=== PATIENT | female | born 1995 | race American Indian/Alaskan Native ===

== ENCOUNTER 2020-03-15 11:43 | Observation (INO) | payer MEDICAID ==
[2020-03-15] MEDS ORDERED: DEXTROSE 50% IN WATER (25GM) 50 ML VIAL IV ONE (11:48)
[2020-03-15] MEDS ORDERED: DEXTROSE 50% IN WATER (25GM) 50 ML SYRINGE IV SCH (12:00)
--- NOTE | 2020-03-15 12:14 | Emergency Department Report ---
ED Altered Mental Status HPI - General Chief Complaint: Hypoglycemia Stated Complaint: DIABETES/AMS PUI?: No Time Seen by Provider: 03/15/20 11:48 Source: EMS Mode of arrival: Ambulatory Limitations: No Limitations - History of Present Illness Initial Comments: Chief complaint: Low blood sugar altered mental status HPI: This is a 24-year-old female with history of i juvenile diabetes mellitus and asthma who presents with decreased responsiveness status. Patient was found in bed by her friend. Patient would not respond. EMS discovered blood glucose level to be 10. EMS was unable to obtain venous access after several attempts. Friend deactivated insulin pump. MD Complaint: altered mental status, decreased responsiveness -: Sudden, This morning Severity: severe Consistency of Symptoms: constant Context: diabetes - Related Data Home Medications Medication Instructions Recorded Confirmed Last Taken Insulin Aspart (Nf) [Novolog 100 1 - 25 unit SQ PRN PRN 03/06/14 03/13/14 03/13/14 UNITS/ML] Insulin NPH, Human [Novolin N] 12 unit SQ DAILY 03/06/14 03/13/14 03/13/14 Previous Rx's Medication Instructions Recorded Last Taken Type SILVER sulfADIAZINE 400 GRAM 50 gm TP BID #1 jar 03/13/14 Unknown Rx [Thermazene 400 Gram] oxyCODONE /ACETAMINOPHEN [Percocet 1 - 2 tab PO Q4H PRN #30 tablet 03/13/14 Unknown Rx 5/325 mg] Allergies Allergy/AdvReac Type Severity Reaction Status Date / Time shellfish derived Allergy Itching Verified 03/06/14 10:50 ED Review of Systems ROS: Stated complaint: DIABETES/AMS Other details as noted in HPI Comment: Unobtainable due to pts medical conditions (Limited due to altered mental status) ED Past Medical Hx - Past Medical History Previous Medical History?: Yes Hx Hypertension: No Hx Congestive Heart Failure: No Hx Diabetes: Yes (since 2003) Hx Deep Vein Thrombosis: No Hx Renal Disease: No Hx Sickle Cell Disease: No Hx Seizures: Yes (secondary to hypoglycemia x 2, last in 2010. No meds.) Hx Asthma: Yes (Childhood, no meds) Hx COPD: No Hx HIV: No - Social History Smoking Status: Never Smoker - Medications Home Medications: Home Medications Medication Instructions Recorded Confirmed Last Taken Type Insulin Aspart (Nf) [Novolog 100 1 - 25 unit SQ PRN PRN 03/06/14 03/13/14 03/13/14 History UNITS/ML] Insulin NPH, Human [Novolin N] 12 unit SQ DAILY 03/06/14 03/13/14 03/13/14 History SILVER sulfADIAZINE 400 GRAM 50 gm TP BID #1 jar 03/13/14 Unknown Rx [Thermazene 400 Gram] oxyCODONE /ACETAMINOPHEN [Percocet 1 - 2 tab PO Q4H PRN #30 tablet 03/13/14 Unknown Rx 5/325 mg] ED Physical Exam - General Limitations: No Limitations General appearance: lethargic, other (Patient staring off, not talking, will withdraw from pain) - Head Head exam: Present: atraumatic, normocephalic - Eye Eye exam: Present: normal appearance - ENT ENT exam: Present: mucous membranes moist - Neck Neck exam: Present: normal inspection, full ROM - Respiratory Respiratory exam: Present: normal lung sounds bilaterally. Absent: respiratory distress, wheezes, rales, rhonchi - Cardiovascular Cardiovascular Exam: Present: normal rhythm, tachycardia, normal heart sounds. Absent: systolic murmur, diastolic murmur, rubs, gallop - GI/Abdominal GI/Abdominal exam: Present: soft, normal bowel sounds. Absent: distended, tenderness, guarding - Extremities Exam Extremities exam: Present: normal inspection - Neurological Exam Neurological exam: Present: altered, oriented X3 - Psychiatric Psychiatric exam: Present: flat affect - Skin Skin exam: Present: warm, dry, intact, normal color. Absent: rash ED Course Vital Signs 03/15/20 03/15/20 11:50 11:54 Temperature 98.4 F Pulse Rate 125 H Respiratory 12 18 Rate Blood Pressure 120/71 Blood Pressure 120/71 [Right] O2 Sat by Pulse 100 100 Oximetry - IO Right Tibia Consent Obtained: emergent situation Time Out Performed: Yes IO Instrument Used to Penetrate the Cortex: battery powered IO drill Patient Tolerated Procedure: well Complications: none - Lab Data Result diagrams: 03/15/20 12:17 Lab Results 03/15/20 Range/Units 12:17 Sodium 137 (137-145) mmol/L Potassium 5.1 H (3.6-5.0) mmol/L Chloride 103.8 (98-107) mmol/L Carbon Dioxide 22 (22-30) mmol/L Anion Gap 16 mmol/L BUN 12 (7-17) mg/dL Creatinine 0.8 (0.6-1.2) mg/dL Estimated GFR > 60 ml/min BUN/Creatinine Ratio 15 % Glucose 281 H (65-100) mg/dL Calcium 9.1 (8.4-10.2) mg/dL - Medical Decision Making Upon patient's arrival, nurse called me to the room. I immediately requested rapid EZ IO. I first made sure that the insulin pump was off. I inserted IO catheter into the right tibia under emergent conditions without consent. After patient received 2 ampoules of dextrose, she gained alertness. She was able to speak. She stated that she did not eat breakfast this morning. After 4 hours of observation patient is still slightly altered. She is unable to ambulate without assistance. She will be admitted to the hospital service for further treatment evaluation. Critical Care Time: Yes Critical care time in (mins) excluding proc time.: 40 Critical care attestation.: If time is entered above; I have spent that time in minutes in the direct care of this critically ill patient, excluding procedure time. 40 minutes of critical care time excluding procedures were used in the care of the patient. I came immediately to the bedside upon patient's arrival. I obtained history from EMS at the bedside. I discussed treatment plan with the nursing team members. I was concerned for severe profound hypoglycemia. Patient required multiple interventions and reassessments. ED Disposition Clinical Impression: Acute metabolic encephalopathy, Hypoglycemia due to insulin Disposition: OP ADMIT IP TO THIS HOSP Is pt being admited?: Yes Does the pt Need Aspirin: No Condition: Stable
[2020-03-15 12:48] LABS: BUN/Creatinine Ratio 15; Blood Urea Nitrogen 12 mg/dL (7-17); Calcium 9.1 mg/dL (8.4-10.2); Hemolysis Index 56
[2020-03-15] MEDS ORDERED: ACETAMINOPHEN 325 MG TAB PO PRN (23:00)
[2020-03-15] MEDS ORDERED: ONDANSETRON 4 MG/2 ML INJ IV PRN (23:00)
[2020-03-15] MEDS ORDERED: D5W/0.9% NACL 1,000 ML IV SCH (23:00)
[2020-03-15] MEDS ORDERED: MORPHINE 2 MG/1 ML INJ IV PRN (23:00)
[2020-03-15] MEDS ORDERED: HYDROmorphone 1 MG/1 ML INJ IV PRN (23:00)
[2020-03-15] MEDS ORDERED: METOCLOPRAMIDE 10 MG/2 ML INJ IV PRN (23:00)
--- NOTE | 2020-03-15 23:12 | History and Physical Report ---
History of Present Illness Date of examination: 03/15/20 Date of admission: 03/15/20 15:40 Chief complaint: Unresponsive + History of present illness: HPI: This is a 24-year-old female with history of i juvenile diabetes mellitus and asthma who presents with decreased responsiveness status. Patient was found in bed by her friend. Patient would not respond. EMS discovered blood glucose level to be 10. EMS was unable to obtain venous access after several attempts. Friend deactivated insulin pump. Complaint: altered mental status, decreased responsiveness -: Sudden, This morning Severity: severe Consistency of Symptoms: constant Context: diabetes Patient on insulin pump and not eating a regular basis. Patient knowledgeable about diabetes - Past Medical History Previous Medical History?: Yes --Diabetes: Yes (since 2003) --Seizures: Yes (secondary to hypoglycemia x 2, last in 2010. No meds.) --Asthma: Yes (Childhood, no meds) - Social History Smoking Status: Never Smokerump -- Surgical history insulin pump --Family history Htn - Medications Home Medications: Home Medications Medication Instructions Recorded Confirmed Last Taken Type Insulin Aspart (Nf) [Novolog 100 1 - 25 unit SQ PRN PRN 03/06/14 03/13/14 03/13/14 History UNITS/ML] Insulin NPH, Human [Novolin N] 12 unit SQ DAILY 03/06/14 03/13/14 03/13/14 History SILVER sulfADIAZINE 400 GRAM 50 gm TP BID #1 jar 03/13/14 Unknown Rx [Thermazene 400 Gram] oxyCODONE /ACETAMINOPHEN [Percocet 1 - 2 tab PO Q4H PRN #30 tablet 03/13/14 Unknown Rx 5/325 mg] Review of Systems ROS: Stated complaint: DIABETES/AMS Other details as noted in HPI Comment: Unobtainable due to pts medical conditions (Limited due to altered mental status) Medications and Allergies Allergies Allergy/AdvReac Type Severity Reaction Status Date / Time shellfish derived Allergy Itching Verified 03/06/14 10:50 Home Medications Medication Instructions Recorded Confirmed Last Taken Type Insulin Aspart (Nf) [Novolog 100 1 - 25 unit SQ PRN PRN 03/06/14 03/13/14 03/13/14 History UNITS/ML] Insulin NPH, Human [Novolin N] 12 unit SQ DAILY 03/06/14 03/13/14 03/13/14 History SILVER sulfADIAZINE 400 GRAM 50 gm TP BID #1 jar 03/13/14 Unknown Rx [Thermazene 400 Gram] oxyCODONE /ACETAMINOPHEN [Percocet 1 - 2 tab PO Q4H PRN #30 tablet 03/13/14 Unknown Rx 5/325 mg] Exam - Constitutional Vitals: Temp Pulse Resp BP Pulse Ox 98.1 F 127 H 18 119/78 100 03/15/20 21:15 03/15/20 21:26 03/15/20 21:15 03/15/20 21:15 03/15/20 21:26 General appearance: Present: no acute distress, well-nourished - EENT Eyes: Present: PERRL ENT: hearing intact, clear oral mucosa - Neck Neck: Present: supple, normal ROM - Respiratory Respiratory effort: normal Respiratory: bilateral: CTA - Cardiovascular Heart rate: 78 Rhythm: regular Heart Sounds: Present: S1 & S2. Absent: rub, click - Extremities Extremities: pulses symmetrical, No edema Peripheral Pulses: within normal limits - Abdominal General gastrointestinal: Present: soft, non-tender, non-distended, normal bowel sounds Female genitourinary: Present: normal - Integumentary Integumentary: Present: clear, warm, dry - Musculoskeletal Musculoskeletal: gait normal, strength equal bilaterally - Psychiatric Psychiatric: appropriate mood/affect, intact judgment & insight - Neurologic Neurologic: CNII-XII intact, moves all extremities Results - Labs CBC & Chem 7: 03/16/20 02:11 03/16/20 02:11 Labs: Laboratory Last Values Sodium 137 mmol/L (137-145) 03/15/20 12:17 Potassium 5.1 mmol/L (3.6-5.0) H 03/15/20 12:17 Chloride 103.8 mmol/L (98-107) 03/15/20 12:17 Carbon Dioxide 22 mmol/L (22-30) 03/15/20 12:17 Anion Gap 16 mmol/L 03/15/20 12:17 BUN 12 mg/dL (7-17) 03/15/20 12:17 Creatinine 0.8 mg/dL (0.6-1.2) 03/15/20 12:17 Estimated GFR > 60 ml/min 03/15/20 12:17 BUN/Creatinine Ratio 15 % 03/15/20 12:17 Glucose 281 mg/dL (65-100) H 03/15/20 12:17 POC Glucose 201 mg/dL (70-105) H 03/15/20 20:08 Calcium 9.1 mg/dL (8.4-10.2) 03/15/20 12:17 [place]/IV: IV Catheter Type [Right Peripheral IV External Jugular] Assessment and Plan Advance Directives: Yes (Full code) VTE prophylaxis?: Chemical Plan of care discussed with patient/family: Yes - Patient Problems (1) Acute metabolic encephalopathy Current Visit: Yes Status: Acute Plan to address problem: Secondary to hypoglycemia (2) Hypoglycemia due to insulin Current Visit: Yes Status: Acute Plan to address problem: Patient initiated on D5 W normal saline and also moderate dose insulin sliding scale coverage Insulin pump was discontinued Patient to go home on insulin pump at a reduced dosage and 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
[2020-03-15] MEDS ORDERED: INSULIN LISPRO 100 UNIT/ML VIAL 3 mL SUB-Q SCH (23:45)
[2020-03-16] MEDS: FAMOTIDINE 20 MG/2 ML INJ IV SCH ×2 (00:55→11:07)
[2020-03-16 02:52] LABS: Basophils % (Auto) 0.5 % (0.0-1.8); Eosinophils % (Auto) 0.5 % (0.0-4.3); Hematocrit 38.3 % (30.3-42.9); Hemoglobin 12.5 gm/dl (10.1-14.3); Lymphocytes # (Auto) 0.9 K/mm3 (1.2-5.4); Lymphocytes % (Auto) 14.5 % (13.4-35.0); Mean Corpuscular HGB Conc 33 % (30-34); Mean Corpuscular Volume 89 fl (79-97); Monocytes # (Auto) 0.4 K/mm3 (0.0-0.8); Monocytes % (Auto) 6.6 % (0.0-7.3); Platelet Count 228 K/mm3 (140-440); Red Blood Count 4.32 M/mm3 (3.65-5.03); Red Cell Distribution Width 14.8 % (13.2-15.2)
[2020-03-16 02:57] LABS: Alanine Aminotransferase 34 units/L (7-56); Albumin 3.7 g/dL (3.9-5); BUN/Creatinine Ratio 15; Blood Urea Nitrogen 12 mg/dL (7-17); Calcium 8.8 mg/dL (8.4-10.2); Hemolysis Index 123
[2020-03-16] MEDS: INSULIN LISPRO 100 UNIT/ML VIAL 3 mL SUB-Q SCH ×4 (04:57→17:09)
[2020-03-16] MEDS: oxyCODONE /ACETAMINOPHEN 5-325MG TAB PO PRN ×2 (11:45→15:16)
[2020-03-16 16:38] VITALS: BP 118/74
--- NOTE | 2020-03-16 17:54 | Discharge Summary ---
Providers - Providers Date of Admission: 03/15/20 15:40 Date of discharge: 03/16/20 Attending physician: SIMI CALERO Primary care physician: ASSOCIATE PROFESSOR [employer] Hospitalization Condition: Stable Hospital course: HPI: This is a 24-year-old female with history of i juvenile diabetes mellitus and asthma who presents with decreased responsiveness status. Patient was found in bed by her friend. Patient would not respond. EMS discovered blood glucose level to be 10. EMS was unable to obtain venous access after several attempts. Friend deactivated insulin pump. MD Complaint: altered mental status, decreased responsiveness -: Sudden, This morning Severity: severe Consistency of Symptoms: constant Context: diabetes Patient on insulin pump and not eating a regular basis. Patient knowledgeable about diabetes - Past Medical History Previous Medical History?: Yes --Diabetes: Yes (since 2003) --Seizures: Yes (secondary to hypoglycemia x 2, last in 2010. No meds.) --Asthma: Yes (Childhood, no meds) - Social History Smoking Status: Never Smokerump -- Surgical history insulin pump --Family history Htn - Medications Home Medications: Home Medications Medication Instructions Recorded Confirmed Last Taken Type Insulin Aspart (Nf) [Novolog 100 1 - 25 unit SQ PRN PRN 03/06/14 03/13/14 03/13/14 History UNITS/ML] Insulin NPH, Human [Novolin N] 12 unit SQ DAILY 03/06/14 03/13/14 03/13/14 History SILVER sulfADIAZINE 400 GRAM 50 gm TP BID #1 jar 03/13/14 Unknown Rx [Thermazene 400 Gram] oxyCODONE /ACETAMINOPHEN [Percocet 1 - 2 tab PO Q4H PRN #30 tablet 03/13/14 Unknown Rx 5/325 mg] - Patient Problems (1) Acute metabolic encephalopathy Current Visit: Yes Status: Acute Plan to address problem: Improved (2) Hypoglycemia due to insulin Current Visit: Yes Status: Acute Plan to address problem: Improved (3) IDDM (insulin dependent diabetes mellitus) Current Visit: Yes Status: Chronic Plan to address problem: Patient to resume insulin pump after discharge Disposition: TO HOME OR SELFCARE - Discharge Diagnoses (1) Acute metabolic encephalopathy Status: Acute (2) Hypoglycemia due to insulin Status: Acute (3) IDDM (insulin dependent diabetes mellitus) Status: Chronic (4) DVT prophylaxis Status: Acute Core Measure Documentation - Palliative Care Palliative Care/ Comfort Measures: Not Applicable - Core Measures Any of the following diagnoses?: none Exam - Constitutional Vitals: Temp Pulse Resp BP Pulse Ox 98.9 F 109 H 18 118/74 99 03/16/20 16:25 03/16/20 16:25 03/16/20 16:25 03/16/20 16:25 03/16/20 16:25 General appearance: Present: no acute distress, well-nourished - EENT Eyes: Present: PERRL ENT: hearing intact, clear oral mucosa - Neck Neck: Present: supple, normal ROM - Respiratory Respiratory effort: normal Respiratory: bilateral: CTA - Cardiovascular Heart Sounds: Present: S1 & S2. Absent: rub, click - Extremities Extremities: pulses symmetrical, No edema Peripheral Pulses: within normal limits - Abdominal General gastrointestinal: Present: soft, non-tender, non-distended, normal bowel sounds Female genitourinary: Present: normal - Integumentary Integumentary: Present: clear, warm, dry - Musculoskeletal Musculoskeletal: gait normal, strength equal bilaterally - Psychiatric Psychiatric: appropriate mood/affect, intact judgment & insight - Neurologic Neurologic: CNII-XII intact, moves all extremities Plan Activity: no restrictions Diet: diabetic Follow up with: PRIMARY CARE, [Primary Care Provider] - 3-5 Days
[2020-03-16] MEDS ORDERED: FAMOTIDINE 20 MG TAB PO SCH (22:00)
== END 2020-03-16 20:05 | disposition home or self-care (01) ==
LOC: ED 11:43 → 3A 15:40 → 3B-SURG 18:14
PROVIDERS: ADMIT Internal Medicine; ATTEND Internal Medicine
DX: G93.41 Metabolic encephalopathy (principal); E16.0 Drug-induced hypoglycemia without coma; E11.649 Type 2 diabetes mellitus with hypoglycemia without coma; J45.909 Unspecified asthma, uncomplicated; R56.9 Unspecified convulsions; Z79.4 Long term (current) use of insulin
CPT/HCPCS: 36415; 80048; 80053; 82962; 83036; 85025; 96361; 96372; 96374; 96375; 96376; 99291; G0378; J7042